=== PATIENT | male | born 2005 | race Hispanic/Latino ===

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

== ENCOUNTER 2025-07-13 17:14 | Emergency (ER) | payer SELFPAY ==
[2025-07-13 17:25] VITALS: BP 137/71; PULSE 120; RESP 24; TEMP 36.4; O2SAT 96
--- NOTE | 2025-07-13 17:48 | ED_ITS ---
HPI - General Adult General Chief complaint: Unspecified Stated complaint: Chest Wall Pain Related Data Allergies Allergy/AdvReac Type Severity Reaction Status Date / Time No Known Allergies Allergy Verified 07/13/25 17:17 Course Vital Signs Vital signs: Vital Signs Temperature 97.5 F L 07/13/25 17:25 Pulse Rate 120 H 07/13/25 17:25 Respiratory Rate 24 H 07/13/25 17:25 Blood Pressure 137/71 07/13/25 17:25 Pulse Oximetry 96 07/13/25 17:25 Oxygen Delivery Room Air 07/13/25 17:25 Temperature 97.5 F L 07/13/25 17:25 Pulse Rate 120 H 07/13/25 17:25 Respiratory Rate 24 H 07/13/25 17:25 Blood Pressure 137/71 07/13/25 17:25 Pulse Oximetry 96 07/13/25 17:25 Oxygen Delivery Room Air 07/13/25 17:25 Medical Decision Making Vital Signs Vital Signs: Vital Signs Temperature 97.5 F L 07/13/25 17:25 Pulse Rate 120 H 07/13/25 17:25 Respiratory Rate 24 H 07/13/25 17:25 Blood Pressure 137/71 07/13/25 17:25 Pulse Oximetry 96 07/13/25 17:25 Oxygen Delivery Room Air 07/13/25 17:25 Temperature 97.5 F L 07/13/25 17:25 Pulse Rate 120 H 07/13/25 17:25 Respiratory Rate 24 H 07/13/25 17:25 Blood Pressure 137/71 07/13/25 17:25 Pulse Oximetry 96 07/13/25 17:25 Oxygen Delivery Room Air 07/13/25 17:25 Discharge Plan Discharge Patient Language: Bahraini Follow-up/Referrals: PHYSICIAN,RN EMERGENCY ROOM [Primary Care Provider, Internal Medicine]
--- NOTE | 2025-07-13 17:49 | ED.URI ---
HPI - URI/Sore Throat General Chief Complaint: Unspecified Stated Complaint: Chest Wall Pain Time Seen by Provider: 07/13/25 17:39 Source: patient and RN notes reviewed Mode of arrival: ambulatory Limitations: language barrier (Chronic Disease Manager service used) History of Present Illness HPI Narrative: 19-year-old male presents with concern for shortness of breath, cough. Reports chest wall pain with coughing. He has been using [id number] inhaler without relief. He reports history of needing an inhaler and allergies. MD elicited complaint: cough Related Data Allergies Allergy/AdvReac Type Severity Reaction Status Date / Time No Known Allergies Allergy Verified 07/13/25 17:17 Review of Systems Review of Systems: CONSTITUTIONAL: Denies malaise, chills, sweats, or fever. ENT: Reports rhinorrhea, congestion CARDIOVASCULAR: Denies chest pain, palpitations, or edema. All systems reviewed & are unremarkable except as noted in HPI and below PMFSH Comments At time of signature, agree with nursing past medical, surgical, social and family history. There is no relevant family history pertinent to the presenting complaint Exam Narrative: GENERAL: Well-appearing, well-nourished, and in no acute distress. HEAD: Normocephalic EYES: PERRLA, conjunctivae clear ENT: Nares clear. Mucous membranes moist. TM pearly persaud with dull light reflex bilaterally; no tragal tenderness. Oropharynx not erythematous without lesions. Tonsils not enlarged and without exudate, no drooling, no hoarseness, no trismus, uvula midline. NECK: Supple. No lymphadenopathy CHEST: Lung sounds tight, inspiratory and expiratory wheeze, breath sounds equal. No rhonchi, rales, or stridor. No respiratory distress, speaks in full sentences. Tripoding HEART: Regular rate and rhythm. No murmur heard. SKIN: Warm, dry, no rash. NEURO: Alert and oriented x3. PSYCH: Normal mood and affect Course Course Emergency Course: Patient is aware of diagnosis, understands and agrees to treatment plan. Anticipatory guidance given. Patient agrees to follow-up as directed and is aware of reasons to seek care at the emergency department. Portions of this record may have been created with voice recognition software Level of Care: Express Care Visit Reevaluation(s) Reevaluation #1: Wheezing greatly improved, aeration greatly improved, still mild expiratory wheezing in the right upper lobe. Patient appears more comfortable. Patient reports symptoms improved. Date: 07/13/25 Time: 18:13 Vital Signs Vital signs: Vital Signs Temperature 97.5 F L 07/13/25 17: Pulse Rate 120 H 07/13/25 17:25 Respiratory Rate 24 H 07/13/25 17:25 Blood Pressure 137/71 07/13/25 17: Pulse Oximetry 96 07/13/25 17:25 Oxygen Delivery Room Air 07/13/25 17: Temperature 97.5 F L 07/13/25 17: Pulse Rate 120 H 07/13/25 17:25 Respiratory Rate 24 H 07/13/25 17: Blood Pressure 137/71 07/13/25 17: Pulse Oximetry 96 07/13/25 17: Oxygen Delivery Room Air 07/13/25 17:25 Reviewed. MDM - URI/Sore Throat MDM Narrative Medical decision making narrative: Differential diagnosis considered: Conn virus, strep pharyngitis, allergic rhinitis, upper respiratory tract infection, sinusitis, rhinosinusitis, nasopharyngitis. viral pharyngitis, otitis media, otitis externa, pneumonia, bronchitis, viral cough syndrome, viral syndrome, and influenza. Exam findings show no acute concerns or changes; patient is non-toxic appearing and is in no distress. Patient is appropriate for outpatient treatment and follow-up. Lab Data Attestation: I reviewed the patient's lab results. Critical Care Time Critical Care Time Critical Care Time: No Discharge Plan Discharge Clinical Impression: Diffuse wheezing Patient Disposition: Home Condition: Stable Instructions: How to Use a Metered-Dose Inhaler (ED) Additional Instructions: Take medication as prescribed Recommend antihistamine such as Benadryl at night time and Zyrtec or Myranda during the day Use inhaler as needed for cough, wheezing, shortness of breath or chest tightness. Also, recommend symptomatic treatment includes: rest, fluids, and increase humidity of the air at home. Recommend Acetaminophen as directed on the bottle to reduce fever, pain, headache. Avoid smoking/second-hand smoke. Please schedule a follow-up visit with your personal physician for further evaluation and treatment within 3-5days. If your symptoms persist, change or worsen significantly before you can contact your personal physician then please, without delay, go to the emergency department for further evaluation. Patient Language: Uruguayan Prescriptions: New albuterol sulfate 90 mcg/actuation HFA aerosol inhaler 2 puff INHALATION QID PRN (Reason: shortness of breath or wheezing) Qty: 8.5 0RF prednisone 20 mg tablet 40 mg PO DAILY 4 Days Qty: 8 0RF Rx Instructions: Start 07/14/25 Follow-up/Referrals: PHYSICIAN,INSPECTOR MATERIALS AND PROCESSES [Primary Care Provider, Internal Medicine] Stand Alone Forms: Work/School Release IP Time of Disposition: 18:30
[2025-07-13] MEDS: IPRATROPIUM 0.5 MG/ALBUTEROL SULFATE 2.5 MG (BASE) AMPUL.NEB 3 ML INHALATION (17:53)
[2025-07-13 18:25] VITALS: PULSE 107; RESP 28; O2SAT 95
== END 2025-07-13 18:44 | disposition home or self-care (01) ==
PROVIDERS: Emergency Provider Nurse Practitioner
DX: R06.2 Wheezing (principal)
CPT/HCPCS: 94640; 96372; 99213; G0463; J2919